=== PATIENT | female | born 1985 | race Caucasian/White ===

== ENCOUNTER 2017-05-12 07:33 | Inpatient (IN) | payer MEDICAID ==
[~2017-05-12] VITALS: Ht 149.9 cm; Wt 57.5 kg
[2017-05-12] VITALS (15 sets, daily range): BP systolic 110–143; BP diastolic 61–84; PULSE 58–66; RESP 16–20; Ht 149.9 cm; Wt 57.5 kg
[2017-05-12] MEDS ORDERED: PREN1TAB79 PO (07:43)
[2017-05-12] MEDS ORDERED: LACTATED RINGER'S 1,000 ML IV SCH (08:39)
[2017-05-12] MEDS ORDERED: OXYTOCIN 30 UNITS/LR 500 ML IV SCH (09:00)
[2017-05-12] MEDS ORDERED: MISOPROSTOL 200 MCG TAB PR PRN ×2 (09:00→20:30)
[2017-05-12] MEDS ORDERED: METHYLERGONOVINE 0.2 MG INJ IM PRN ×2 (09:00→20:30)
[2017-05-12] MEDS ORDERED: OXYTOCIN 30 UNITS/LR 500 ML IV PRN ×2 (09:00→20:30)
[2017-05-12] MEDS ORDERED: CARBOPROST 250 MCG INJ IM PRN ×2 (09:00→20:30)
[2017-05-12 09:35] LABS: BASOPHIL # 0.1 10^3/ul (0.0-0.1); BASOPHILS % 0.5 % (0.0-2.0); EOSINOPHILS % 0.3 % (0.0-7.0); HEMATOCRIT 33.6 % (37.0-47.0); HEMOGLOBIN 10.5 g/dl (12.0-16.0); LYMPHOCYTES # 1.8 10^3/ul (0.8-2.9); LYMPHOCYTES % 17.2 % (15.0-51.0); MEAN CORPUSCULAR HEMOGLOBIN 22.5 pg (29.0-33.0); MEAN CORPUSCULAR HGB CONC 31.3 g/dl (32.0-37.0); MEAN CORPUSCULAR VOLUME 72.1 fl (82.0-101.0); MEAN PLATELET VOLUME 10.3 fl (7.4-10.4); MONOCYTE # 0.5 10^3/ul (0.3-0.9); NEUTROPHIL # 7.9 10^3/ul (1.6-7.5); NEUTROPHILS % 76.5 % (39.0-77.0); PLATELET COUNT 217 10^3/UL (140-415); RED BLOOD COUNT 4.66 10^6/ul (4.20-5.40); RED CELL DISTRIBUTION WIDTH 15.6 % (11.5-14.5); WHITE BLOOD COUNT 10.3 10^3/ul (4.8-10.8)
--- NOTE | 2017-05-12 09:42 | TRIAGE ---
OB Triage Datetime Report Generated by CPN: 05/12/2017 09:42 Datetime: 05/12/2017 09:31 Assessment Type: Admission Assessment Vaginal Bleeding: None Maternal Assessment Level of Consciousness: Fully Conscious DTR's/Clonus: DTRs 2+; No Clonus Headache: Denies Blurred Vision: No Respiratory Effort: Unlabored; Regular Rhythm; Equal Expansion Breath Sounds, Left: Clear and Equal Breath Sounds, Right: Clear and Equal Nausea/Vomiting: Denies RUQ Epigastric Pain: Denies Lower Extremities Edema: None Degree: None Upper Extremities Edema: None Degree: None Facial Edema: None Fall Risk Assessment History of Falling: (0) No Secondary Diagnosis: (0) No Ambulatory Aid: (0) Bedrest/Nurse Assist IV Therapy: (0) No Gait: (0) Normal/Bedrest/Immobile Mental Status: (0) Oriented to Own Ability Fall Score: 0 Fall Risk Score Definition: No Risk: No action required Labor Evaluation Frequency: 3-5 Duration (sec)2399: 40-110 Quality: Moderate Pattern: Normal: <= 5 Contractions in 10 Minutes Resting Tone [place]: Relaxed Heart Rate FHR Baseline Rate: 135 Variability: Moderate 6-25 bpm Accelerations: 15X15 Decelerations: None Category: Category I Pain Assessment Pain Scale: 8 Pain Presence: Intermittent Pain Type: Contraction Pain Location: Abdomen Pain Goal: 2 Vaginal Exam Dilatation (cms): 1.0 Effacement (%): 80 Station: -2 (Annotations: in triage) Membrane Status: Intact Datetime: 05/12/2017 09:04 Labor Evaluation Frequency: 2-5 Monitor Mode: External Duration (sec)2399: 60-110 Quality: Mild Pattern: Normal: <= 5 Contractions in 10 Minutes Resting Tone [place]: Relaxed Heart Rate FHR Baseline Rate: 135 Monitor Mode: External US Variability: Moderate 6-25 bpm Accelerations: 15X15 Decelerations: None Category: Category I Pain Assessment Pain Scale: 8 Pain Presence: Intermittent Pain Type: Contraction Pain Location: Abdomen Pain Goal: 2 Pain Relief Measures: Comfort Measures Membrane Status: Intact Datetime: 05/12/2017 08:38 Labor Evaluation Frequency: 1-5 Monitor Mode: External Duration (sec)2399: 40-80 Quality: Strong Pattern: Normal: <= 5 Contractions in 10 Minutes Resting Tone [place]: Relaxed Heart Rate FHR Baseline Rate: 130 Monitor Mode: External US FHR Baseline Changes: No Baseline Change Variability: Moderate 6-25 bpm Accelerations: 15X15 Decelerations: None Category: Category I Pain Assessment Pain Scale: 8 Pain Presence: Intermittent Pain Type: Contraction Pain Location: Abdomen; Back Pain Goal: 2 Pain Relief Measures: Comfort Measures Membrane Status: Intact Datetime: 05/12/2017 08:10 Vaginal Exam Dilatation (cms): 1.0 Effacement (%): 80 Station: -2 Exam By: MAY Vaginal Bleeding: Normal Show Cervix, Consistency: Soft Cervix, Position: Posterior Presentation 'A': Cephalic Datetime: 05/12/2017 08:08 Labor Evaluation Frequency: 3-6 Monitor Mode: External Duration (sec)2399: 40-80 Quality: Strong Pattern: Normal: <= 5 Contractions in 10 Minutes Resting Tone [place]: Relaxed Heart Rate FHR Baseline Rate: 130 Monitor Mode: External US FHR Baseline Changes: No Baseline Change Variability: Moderate 6-25 bpm Accelerations: 15X15 Decelerations: None Category: Category I Pain Assessment Pain Scale: 8 Pain Presence: Intermittent Pain Type: Contraction Pain Location: Abdomen; Back Pain Goal: 2 Pain Relief Measures: Comfort Measures Membrane Status: Intact Datetime: 05/12/2017 07:47 Time of Arrival: 05/12/2017 08:50 EGA: 37.6 Arrived By: Ambulatory Arrived From: Other Unit in Hospital Datetime: 05/12/2017 07:44 Time of Arrival: 05/12/2017 07:25 EGA: 37.6 Arrived By: Ambulatory Arrived From: Home Chief Complaint: CONTRACTIONS AND SPOTTING Movement: Present Contractions: Irregular Time Contractions Began: 05/12/2017 02:00 Rupture of Membranes: Denies Vaginal Bleeding: Normal Show Vaginal Discharge: Present Recent Sexual Intercouse: Denies Abdominal Trauma: Not Applicable Patient Complaints: Contractions Time Provider Notified: 05/12/2017 08:15 Provider Notified: DR. SGAE Initial Plan: EFM Datetime: 05/12/2017 07:36 Monitor Mode: External Monitor Mode: External US Pain Assessment Pain Scale: 8 Pain Presence: Intermittent Pain Type: Contraction Pain Location: Abdomen; Back Pain Goal: 2 Pain Relief Measures: Comfort Measures Membrane Status: Intact Datetime: 05/12/2017 07:35 Assessment Type: Triage Maternal Assessment Level of Consciousness: Fully Conscious DTR's/Clonus: DTRs 2+; No Clonus Headache: Denies Blurred Vision: No Respiratory Effort: Unlabored; Regular Rhythm; Equal Expansion Breath Sounds, Left: Clear and Equal Breath Sounds, Right: Clear and Equal Nausea/Vomiting: Denies RUQ Epigastric Pain: Denies Lower Extremities Edema: None Degree: None Upper Extremities Edema: None Degree: None Facial Edema: None Fall Risk Assessment History of Falling: (0) No Secondary Diagnosis: (0) No Ambulatory Aid: (0) Bedrest/Nurse Assist IV Therapy: (0) No Gait: (0) Normal/Bedrest/Immobile Mental Status: (0) Oriented to Own Ability Fall Score: 0 Fall Risk Score Definition: No Risk: No action required
[2017-05-12] MEDS ORDERED: FER325 PO (09:51)
[2017-05-12 10:07] LABS: INR 0.85; PROTIME 11.7 Sec (11.9-14.9); PT RATIO 0.9
[2017-05-12 10:08] LABS: PARTIAL THROMBOPLASTIN TIME 27.1 Sec (25.0-35.0)
[2017-05-12] MEDS ORDERED: FENTAnyl 50 MCG/ML VIAL ONE (12:01)
[2017-05-12] MEDS ORDERED: morphine SULFATE/PF (10 MG/10 ML) INJ ONE (12:01)
[2017-05-12] MEDS ORDERED: PHENYLephrine (100 MCG/ML) 5ML SYG ONE (12:06)
[2017-05-12] MEDS ORDERED: DEXAMETHASONE 4 MG/ML 1 ML INJ ONE (12:06)
[2017-05-12] MEDS ORDERED: ONDANSETRON 4 MG INJ ONE (12:06)
[2017-05-12] MEDS ORDERED: morphine 2 MG INJ IV PRN ×2 (12:30→22:00)
[2017-05-12] MEDS ORDERED: KETOROLAC 30 MG INJ IV PRN ×2 (12:30→22:00)
[2017-05-12] MEDS ORDERED: NALOXONE (0.4 MG/ML) INJ IV PRN ×2 (12:30→22:00)
[2017-05-12] MEDS ORDERED: morphine 4 MG/ML VIAL IV PRN ×2 (12:30→22:00)
[2017-05-12] MEDS ORDERED: DIPHENHYDRAMINE 50 MG INJ IV PRN ×2 (12:30→22:00)
[2017-05-12] MEDS ORDERED: ONDANSETRON 4 MG INJ IV PRN ×2 (12:30→22:00)
[2017-05-12] MEDS ORDERED: ZOLPIDEM 5 MG TAB PO PRN ×2 (12:30→22:00)
[2017-05-12] MEDS: CEFAZOLIN 2 GM/50 ML (PMX) 50 ML IV SCH (14:10)
[2017-05-12 15:00] LABS: ALBUMIN 3.2 g/dl (3.3-4.9); ALBUMIN/GLOBULIN RATIO 0.86; BILIRUBIN,INDIRECT 0.2 mg/dl (0-1.1); BILIRUBIN,TOTAL 0.2 mg/dl (0.2-1.3); CREATININE 0.51 mg/dl (0.44-1.00); POTASSIUM 4.1 mmol/L (3.5-5.1); TOTAL PROTEIN 6.9 g/dl (6.1-8.1)
--- NOTE | 2017-05-12 17:15 | OPR ---
Operative Report Planned Procedure Free Text/Dictation 31 years old EDC May 27, 2017 history of previous admitted to [facility] in labor. Procedure date May 12, 2017 Procedure(s) Repeat Performed by see signature line Stock Sheets Cleaner Inspector KACIE Nur Anesthesiologist: BLAYNE SOSA MD Pre-procedure diagnosis 37 weeks 6 days history of previous in active labor Anesthesia Type: spinal Post-Procedure Post-procedure diagnosis Same as above Findings Live Baby 9 and 9 baby waited 2420 GM Estimated Blood Loss: 500 - 600 mls Specimen(s) none Grafts/Implant(s) none Complication(s) none Pt Condition post procedure: stable Procedure Description Under satisfactory spinal anesthesia patient prepped and draped and placed in supine position. Pfannenstiel incision was made. Incision carried through the subcutaneous tissue. Fascia incised to the length of incision. Rectus muscle divided in midline. Peritoneum exposed and entered to a vertical incision. Exploration of abdomen revealed [gravid uterus at term normal-appearing tubes and ovaries.] Bladder flap was developed. Transverse incision was made in the lower segment of the uterus. Amniotic sac ruptured, [clear amniotic fluid noted. ] Live baby boy was delivered from unengaged vertex.Naso oropharyngeal suction was performed. Baby handed to the team for immediate attention. Patient received 20 units of Pitocin. Placenta delivered manually intact. Uterine cavity cleaned with a wet sponge and drainage established. Uterus closed in 2 layers using Monocryl #1 in continuous fashion. Peritoneal cavity irrigated with warm saline. Sponge needle instrument reported to be correct. Abdominal peritoneum closed with 2-0 chromic catgut continuously. Fascia closed with #1 PDS in a continuous fashion. Subcutaneous tissue irrigated with warm saline and approximated with 2-0 chromic catgut skin closed with N sorb. Estimated blood loss [500-600]. Urine bag containing [200] mL of [clear] urine. Patient tolerated procedure well and transferred to recovery room in good condition. RAMONA SAGE MD May 12, 2017 17:15
--- NOTE | 2017-05-12 17:21 | HP ---
Date/Time of Note Date/Time of Note DATE: 05/12/17 TIME: 17:15 OB - History Hx of Present Free Text/Dictation 31 years old female EDC 2016 history of previous section admitted to the hospital at 37 weeks and 6 days in labor. Chief Complaint: 37 weeks and 6 days history of previous Estimated Due Date: May 27, 2017 : 2 Para: 1 Care: Good Care Ultrasounds: Normal mid trimester US Obstetrical Complications: None Medical Complications: None Past Family/Social History * Past Medical, Surgical, Family and Obstetric Histories reviewed from chart. RPR/VDRL: Negative GBS Status: Negative HBsAG: Negative OB Admission Exam Vital Signs Vital Signs Vital Signs Date Time Temp Pulse Resp B/P Pulse Ox O2 Delivery O2 Flow Rate FiO2 05/12/17 07:41 97.5 61 20 136/84 Room Air Physical Exam Lungs: Clear, Equal Abdomen: WNL Reflexes: Normal Station: -2 Membranes: Intact Heart Rate: 130's Accelerations: Accelerations Present Decelerations: No Decelerations Contractions on Admission: >10 Minutes Apart Intensity: Moderate Last 72 hours Lab Results CBC & BMP 05/12/17 09:20 Liver Function Test 05/12/17 09:20 Alanine Aminotransferase (ALT/SGPT) 28 Albumin 3.2 L Alkaline Phosphatase 732 H Aspartate Amino Transf (AST/SGOT) 20 Direct Bilirubin 0.00 Total Protein 6.9 OB Assessment/Plan Reason for admission: other (37 weeks 6 days history of previous C- section in labor) Other plan: 31 years old EDC May 27 admitted at 37 weeks and 6 days , history of previous in labor she is being prepared to undergo repeat she has been counseled regarding the complication of the surgery including bowel bladder injury infection hemorrhage and hematoma and she is willing to go ahead with this procedure . RAMONA SAGE MD May 12, 2017 17:21
[2017-05-12 19:23] LABS: ADD UMIC YES; UR ASCORBIC ACID NEGATIVE (NEGATIVE); UR BILIRUBIN (Dip) NEGATIVE (NEGATIVE); UR BLOOD (Dip) 3+ mg/dL (NEGATIVE); UR CLARITY SLIGHTLY CLOUDY (CLEAR); UR COLOR YELLOW (YELLOW); UR GLUCOSE (Dip) NEGATIVE (NEGATIVE); UR KETONES (Dip) 2+ mg/dL (NEGATIVE); UR LEUKOCYTE ESTERASE (Dip) NEGATIVE Leu/ul (NEGATIVE); UR NITRITE (Dip) NEGATIVE (NEGATIVE); UR RBC > 182 /HPF (0-5); UR TOTAL PROTEIN (Dip) 2+ mg/dl (NEGATIVE); UR UROBILINOGEN (Dip) NEGATIVE (NEGATIVE)
[2017-05-12] MEDS ORDERED: LANOLIN 7 GM TUBE TOP PRN (20:30)
[2017-05-12] MEDS ORDERED: HYDROCODONE/APAP (5/325) TAB PO PRN ×2 (20:30)
[2017-05-12] MEDS ORDERED: OXYCODONE/ACETAMINOPHEN (5/325) TAB PO PRN ×2 (20:30)
[2017-05-12] MEDS ORDERED: CEFAZOLIN 1 GM/50 ML (PMX) 50 ML IVPB SCH ×2 (20:30→23:46)
[2017-05-12] MEDS: OXYTOCIN 30 UNITS/LR 500 ML IV SCH (20:53)
[2017-05-12] MEDS: SENNA/DOCUSATE NA (8.6MG/50MG) TAB PO SCH (21:00)
[2017-05-12] MEDS ORDERED: MAGNESIUM SULFATE 4 GM/100 ML 100 ML IV SCH (21:00)
[2017-05-12] MEDS: MAGNESIUM SULFATE 20 GM/500 ML 500 ML IV SCH (21:47)
[2017-05-13] VITALS (14 sets, daily range): BP systolic 98–114; BP diastolic 50–73; PULSE 58–84; RESP 17–18
[2017-05-13] MEDS: MAGNESIUM SULFATE 20 GM/500 ML 500 ML IV SCH (06:33)
[2017-05-13] MEDS: OXYTOCIN 30 UNITS/LR 500 ML IV SCH (06:34)
[2017-05-13 08:38] LABS: BASOPHILS % 0.2 % (0.0-2.0); HEMATOCRIT 30.3 % (37.0-47.0); HEMOGLOBIN 9.6 g/dl (12.0-16.0); LYMPHOCYTES # 2.4 10^3/ul (0.8-2.9); LYMPHOCYTES % 14.2 % (15.0-51.0); MEAN CORPUSCULAR HEMOGLOBIN 22.9 pg (29.0-33.0); MEAN CORPUSCULAR HGB CONC 31.7 g/dl (32.0-37.0); MEAN CORPUSCULAR VOLUME 72.3 fl (82.0-101.0); MEAN PLATELET VOLUME 10.9 fl (7.4-10.4); MONOCYTE # 1.1 10^3/ul (0.3-0.9); MONOCYTES % 6.7 % (0.0-11.0); NEUTROPHIL # 13.5 10^3/ul (1.6-7.5); NEUTROPHILS % 78.5 % (39.0-77.0); PLATELET COUNT 235 10^3/UL (140-415); RED BLOOD COUNT 4.19 10^6/ul (4.20-5.40); RED CELL DISTRIBUTION WIDTH 15.7 % (11.5-14.5); WHITE BLOOD COUNT 17.1 10^3/ul (4.8-10.8)
[2017-05-13] MEDS: SENNA/DOCUSATE NA (8.6MG/50MG) TAB PO SCH ×2 (09:00→23:12)
--- NOTE | 2017-05-13 12:36 | QN ---
Documentation Comment Post day 1 Afebrile Vital signs are stable, blood pressures running within normal she has no neurological symptoms, recommended to discontinue magnesium sulfate, her abdomen is soft, Bowel sounds are present. Lochia moderate. Extremities normal. Ambulation with help recommended. RAMONA SAGE MD May 13, 2017 12:36
[2017-05-13] MEDS ORDERED: OXYCODONE/ACETAMINOPHEN (5/325) TAB PO PRN (13:50)
[2017-05-13] MEDS ORDERED: HYDROCODONE/APAP (5/325) TAB PO PRN ×2 (13:50)
[2017-05-13] MEDS: IBUPROFEN 600 MG TAB PO SCH (17:34)
[2017-05-13] MEDS: OXYCODONE/ACETAMINOPHEN (5/325) TAB PO PRN ×2 (18:27→23:12)
[2017-05-14 04:00] VITALS: BP 101/58; RESP 18
[2017-05-14] MEDS: OXYCODONE/ACETAMINOPHEN (5/325) TAB PO PRN (06:30)
[2017-05-14] MEDS: IBUPROFEN 600 MG TAB PO SCH ×4 (06:30→18:03)
[2017-05-14] MEDS: SENNA/DOCUSATE NA (8.6MG/50MG) TAB PO SCH ×2 (08:09→20:35)
[2017-05-14 08:10] VITALS: BP 125/56; PULSE 62; RESP 18
--- NOTE | 2017-05-14 09:03 | QN ---
Documentation Comment Post day 2 Afebrile Vital signs are stable Abdomen soft, incision dry, bowel sounds present, no bowel movement, extremities normal, ambulation encouraged, enema ordered RAMONA SAGE MD May 14, 2017 09:03
[2017-05-14 20:00] VITALS: BP 120/76; PULSE 74; RESP 18
[2017-05-15] MEDS: IBUPROFEN 600 MG TAB PO SCH ×3 (00:24→12:51)
[2017-05-15 04:00] VITALS: BP 127/75; PULSE 60; RESP 18
[2017-05-15 08:30] VITALS: BP 134/70; PULSE 58; RESP 18
[2017-05-15] MEDS ORDERED: DIPHTH/TET/ACEL PERTUSS (ADULT) 0.5 ML VIAL IM* ONE (09:00)
[2017-05-15] MEDS: SENNA/DOCUSATE NA (8.6MG/50MG) TAB PO SCH (09:40)
[2017-05-15] MEDS ORDERED: NA PHOSPHATE/BIPHOS 133 ML ENEMA PR ONE (13:30)
== END 2017-05-15 16:15 | disposition home or self-care (01) | DRG 766 ==
LOC: L-D 07:33 → OBT 07:33 → L-D 08:15 → OBT 08:31 → L-D 13:32 → PP1 22:22
PROVIDERS: ADMIT Obstetrics & Gynecology; ATTEND Obstetrics & Gynecology
PROC: 10D00Z1 Extraction of Products of Conception, Low, Open Approach (ICD-10-PCS; principal; 2017-05-12 14:15)
DX: O34.211 Maternal care for low transverse scar from previous cesarean delivery (principal); Z37.0 Single live birth; Z3A.37 37 weeks gestation of pregnancy
CPT/HCPCS: 80053; 81001; 83735; 84560; 85025; 85610; 85730; 86592; 86850; 86900; 86901; 87340; 90715; 94760; 99464; G0463; J0690; J1100; J2274; J2370; J2405; J2590; J3010; J3475; J7120